=== PATIENT | female | born 1960 | race African-American/Black ===

== ENCOUNTER 2016-12-14 03:20 | Inpatient (IN) | payer OTHER ==
--- NOTE | ~2016-12-14 | CT71 ---
[facility] A Service [facility] RADIOLOGY TEXT RESULTS PATIENT: CHAVEZ GUERRERO LOCATION: [facility] : 64 UNIT #: [id number] AGE: [address]: Hazel Pham MD SEX: F ORDER DR: [id number] [place] [address] [id number] I MR#: [id number] Acc #: [id number] NAME: CHAVEZ GUERRERO : 1960 SEX: F STUDY DATE/TIME: 12/14/2016 0443 UNIT: SEDOF ROOM: [facility] [place] STUDY DESCRIPTION: CT Head Wo Contrast Attending Physician: Hazel Pham M.D. Ordering Physician: Gonzalez Lewis D.O. Primary Care Physician: Gonsalo Reyes Pa-C MEDICAL IMAGING REPORT This report is preliminary unless electronic signature is present. EXAM Head CT, 12/14 at 0443. INDICATION Dizziness and nausea that started yesterday. TECHNIQUE Axial images were obtained from the base to the vertex without contrast. This CT exam was performed with one or more of the following radiation dose reduction techniques: automatic exposure control, adjustment of mA and/or kV according to patient size, and iterative reconstruction. COMPARISON STUDIES No comparison. FINDINGS Ventricular size and configuration are normal. There is no acute infarct or hemorrhage. There are no masses. There is some calcification along the anterior falx. No skull fracture. There is some mild atherosclerotic disease in the carotid siphons. Mastoid air cells and middle ear cavities are clear. IMPRESSION Negative head CT. Dictated by... Reji Fragoso Jr., M.D. THIS IS AN ELECTRONICALLY VERIFIED REPORT [facility] A Service [facility] RADIOLOGY TEXT RESULTS PATIENT: CHAVEZ GUERRERO LOCATION: [facility] : 64 UNIT #: [id number] AGE: [address]: Hazel Pham MD SEX: F ORDER DR: Reji Fragoso Jr., M.D. at 12/14/2016 12:39 PM VIET/dorota TD: 12/14/2016 10:38 JOB #: [id number] MEDICAL IMAGING REPORT Page 1 of 1
--- NOTE | ~2016-12-14 | HP ---
Unit #: [id number] #: [id number] Patient: CHAVEZ GUERRERO [id number] [address] [place], [place] [address] [id number] I MR#: [id number] NAME: CHAVEZ GUERRERO ROOM: 471 Age: 56 Sex: F Admission Date: 12/14/2016 : 1960 Attending Physician: Hazel Pham M.D. Primary Care Physician: Gonsalo Reyes Pa-C HISTORY AND PHYSICAL CHIEF COMPLAINT Nausea, vomiting and abdominal pain. HISTORY OF PRESENT ILLNESS The patient is a 56-year-old female with multiple medical problems, who came to the hospital because of nausea, vomiting and abdominal pain. According to her, it started Friday at 9:30. When she woke up she started having dizziness and room rotating. After that she became pretty nauseous and started vomiting. Since then she was vomiting and came to the emergency room. She started having abdominal pain which was radiating to the back. It is moderate in severity. She is still having nausea and still having vomiting. Her pain has not improved according to her. The patient had the same kind of symptoms in the past in 2014 and was diagnosed with pancreatitis. She does not complain of fever, but she was having chills and sweating. The patient does not have any complaint of diarrhea. Her last bowel movement was on . She is passing gas. No complaint of syncopal episode. No complaint of chest pain, shortness of breath or palpitations. PAST MEDICAL HISTORY 1. History of sarcoidosis. 2. History of asthma. 3. cardiomyopathy. 4. Diabetes mellitus type 2. 5. Hypertension. PAST SURGICAL HISTORY 1. History of cholecystectomy. 2. Hysterectomy. 3. History of . 4. History of EGD and colonoscopy. SOCIAL HISTORY The patient lives at home with her . She has past history of smoking, but does not smoke any more. No history of alcohol abuse or drug abuse. FAMILY HISTORY The patient does have a family history of pancreatitis and gallstones and also asthma. ALLERGIES The patient is allergic to Cozaar, quinapril, clonidine and latex. Unit #: [id number] #: [id number] Patient: CHAVEZ GUERRERO HOME MEDICATIONS 1. Zyrtec 10 mg daily. 2. Cardura 4 mg daily. 3. Potassium 10 mEq daily. 4. Toprol XL 100 mg b.i.d. 5. Zofran b.i.d. p.r.n. 6. Hydralazine 50 mg b.i.d. 7. Prilosec 40 mg daily. 8. Ambien 5 mg daily. 9. Gabapentin 600 mg t.i.d. 10. Isosorbide 30 mg daily. 11. Glucophage 500 mg b.i.d. 12. Amlodipine 10 mg daily. 13. Diclofenac 75 mg b.i.d. 14. Furosemide 40 mg daily. REVIEW OF SYSTEMS As per history of present illness. PHYSICAL EXAMINATION GENERAL: The patient is lying in bed. Does not seem to be in respiratory distress, but complaining of a lot of nausea. VITALS: Blood pressure 148/49, respiratory rate 16, pulse 53, temperature 98.3. HEENT: Head is normocephalic. Eye movements are normal. Clear conjunctivae. NECK: Supple. No thyromegaly. No carotid bruit. CHEST: Fair air entry. No additional sounds. HEART: S1 and S2 positive. Regular rhythm. ABDOMEN: Distended. Tenderness is present in the epigastric area and the right upper quadrant, also in the lower abdomen but much less. EXTREMITIES: Negative edema. NEUROLOGIC: The patient is awake, alert and oriented times three. No focal neurological deficits. DIAGNOSTIC STUDIES IMAGING: CT scan of the abdomen and pelvis was done, which shows interval worsening of intra and extrahepatic biliary ductal dilatation. No obstructing lesion is seen. This could be due to an ampullary stenosis and MRCP or ERCP may be beneficial. LABORATORY: White blood cell count 6.5, hemoglobin 12.8, hematocrit 38.5, platelets 201. Sodium 138, potassium 3.1, chloride 99, BUN 10, creatinine 0.5. Digoxin less than 0.02. Urinalysis shows 1+ bacteria. This morning potassium is 2.9. ASSESSMENT The patient is being admitted to medical surgical unit with 1. Abdominal pain. 2. Intractable nausea and vomiting. 3. 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 4. Diabetes mellitus type 2. 5. Hypertension. 6. Sarcoidosis. 7. Recent colonoscopy and per the patient she has a mass in the colon, although I am not very sure. Unit #: [id number] #: [id number] Patient: CHAVEZ GUERRERO PLAN The patient is being admitted to medical/surgical unit. Dr. Solorio has been consulted. The patient is n.p.o. IV pain medication is being done, IV Zofran for nausea and vomiting. The patient's home medications have been reviewed and adjusted. Plan of care has been discussed with the patient at length. Please refer to progress note for further orders. Dictated by Katerine Vieira TD: 12/15/2016 09:38 JOB #: [id number] HISTORY AND PHYSICAL Page 1 of 1 X Hazel Pham MD X HISTORY AND PHYSICAL
--- NOTE | ~2016-12-14 | EKG ---
PATIENT: CHAVEZ GUERRERO UNIT #: [id number] Ventricular Rate: 66 BPM Atrial Rate: 66 BPM P-R Interval: 182 ms QRS Duration: 102 ms Q-T Interval: 440 ms QTC Calculation(Bezet): 461 ms P [employer]: 49 degrees Calculated R [employer]: 2 degrees Calculated T [employer]: 9 degrees Diagnosis Line: Normal sinus rhythm Diagnosis Line: Voltage criteria for left ventricular hypertrophy Diagnosis Line: Abnormal ECG Diagnosis Line: When compared with ECG of 03-JAN-2016 23:21, Diagnosis Line: No significant change was found Diagnosis Line: Confirmed by RICARDO VINES MD ([id number]) on Diagnosis Line: 12/26/2016 7:12:31 AM INTERPRETING DEVIN GARDNER
--- NOTE | ~2016-12-14 | CT2 ---
[facility] A Service of [facility] & [facility] RADIOLOGY TEXT RESULTS PATIENT: CHAVEZ GUERRERO LOCATION: SEDOF [id number] : [birth year] UNIT #: [id number] AGE: [address]: Hazel Pham MD SEX: F ORDER DR: [id number] [place] [id number] I MR#: [id number] Acc #: [id number] NAME: CHAVEZ GUERRERO : 1960 SEX: F STUDY DATE/TIME: 12/14/2016 0456 UNIT: SEDOF ROOM: [id number] STUDY DESCRIPTION: CT Abd and Pelv W Cont Attending Physician: Hazel Pham M.D. Ordering Physician: Gonzalez Lewis D.O. Primary Care Physician: Gonsalo Reyes Pa-C MEDICAL IMAGING REPORT This report is preliminary unless electronic signature is present. EXAM CT abdomen and pelvis, 12/14 at 0456, INDICATION Right upper quadrant and epigastric pain with dizziness and nausea that started yesterday. History of pancreatitis. Pain is 8/10. TECHNIQUE Axial images were obtained through the abdomen and pelvis following IV contrast administration. Multiplanar reformats were obtained. This CT exam was performed with one or more of the following radiation dose reduction techniques: automatic exposure control, adjustment of mA and/or kV according to patient size, and iterative reconstruction. COMPARISON STUDIES Comparison is made with 01/04/2016. FINDINGS ABDOMEN: Heart is enlarged. There is some mild atelectasis in the left lower lobe and there is a trace amount of left pleural fluid. Low-density lesions in the spleen are unchanged. These are presumably benign lesions such as cysts or hemangiomata. Mild hepatic steatosis is present. Small low-density lesions in the right kidney are stable and are probably cysts. The pancreas is normal. No evidence of acute pancreatitis. There has been interval worsening of intra and extrahepatic biliary ductal dilatation. The common bile duct now measures about 1.4 cm in diameter, where it previously measured about 9 mm in diameter. No obstructing lesion is identified. MRCP or ERCP may be beneficial. The unopacified GI tract is normal. No free fluid. PELVIS: Urinary bladder is distended but otherwise normal. Uterus is surgically absent. The appendix is normal. The remainder of the [facility] A Service of [facility] RADIOLOGY TEXT RESULTS PATIENT: CHAVEZ GUERRERO LOCATION: [place] [id number] : [birth year] UNIT #: [id number] AGE: [address]: Hazel Pham MD SEX: F ORDER DR: unopacified GI tract is normal as well. IMPRESSION 1. Interval worsening of intra and extrahepatic biliary ductal dilatation. No obstructing lesion is seen. This could be due to an ampullary stenosis. MRCP or ERCP may be beneficial. 2. Cholecystectomy and hysterectomy. 3. Distended but otherwise normal urinary bladder. 4. Hepatic steatosis. 5. Grossly normal unopacified GI tract, including the appendix. 6. Trace left pleural effusion with some left lower lobe atelectasis. Dictated by... Reji Fragoso Jr., M.D. THIS IS AN ELECTRONICALLY VERIFIED REPORT Reji Fragoso Jr., M.D. at 12/14/2016 12:39 PM VIET/dorota TD: 12/14/2016 10:40 JOB #: [id number] MEDICAL IMAGING REPORT Page 1 of 1
--- NOTE | ~2016-12-14 | CR84 ---
[facility] A Service of [facility] & [facility] RADIOLOGY TEXT RESULTS PATIENT: CHAVEZ GUERRERO LOCATION: [place] [address]- : [birth year] UNIT #: [id number] AGE: [address]: Hazel Pham MD SEX: F ORDER DR: [id number] [facility] [address] [place], [place] [address] [id number] I MR#: [id number] Acc #: [id number] NAME: CHAVEZ GUERRERO : 1960 SEX: F STUDY DATE/TIME: 12/16/2016 13:13 UNIT: [place] ROOM: [facility] STUDY DESCRIPTION: CR ERCP Biliary and Pancr SI Attending Physician: Hazel Pham M.D. Ordering Physician: Jimbo Solorio M.D. Primary Care Physician: Gnosalo Reyes Pa-C MEDICAL IMAGING REPORT This report is preliminary unless electronic signature is present EXAM ERCP 12/16/2016 HISTORY Right upper quadrant and epigastric abdominal pain with dizziness and nausea beginning 12/13/2016 with history of pancreatitis. Dilatation of the common bile duct noted on CT scan of the abdomen and pelvis 12/14/2016 FINDINGS ERCP was performed by Dr. Solorio. 6 spot film radiographs of the upper abdomen were obtained and 3.24 minutes of fluoroscopy time was utilized. Surgical clips are seen in the right upper quadrant from prior cholecystectomy. The pancreatic duct was not injected. Contrast injection of the biliary tree shows dilatation of the intra and extrahepatic bile ducts. No filling defects or strictures were seen. Sphincterotomy was performed by Dr. Solorio. The balloon catheter was pulled retrograde through the common duct but no stones were obtained. A stent was then placed in the common bile duct. Dictated by... Fortino López M.D. THIS IS AN ELECTRONICALLY VERIFIED REPORT Fortino López M.D. at 12/18/2016 8:17 AM Eugene TD: 12/16/2016 18:02 JOB #: [id number] MEDICAL IMAGING REPORT Page 1 of 1 COPY
--- NOTE | ~2016-12-14 | DS ---
Unit #: [id number] #: [id number] Patient: CHAVEZ COSTELLO [id number] [address] [address] [id number] I MR#: [id number] NAME: CHAVEZ COSTELLO ROOM: 47 Age: 56 Sex: F Admission Date: 12/14/2016 : 1960 Discharge Date: 12/17/2016 Attending Physician: Hazel Pham M.D. Primary Care Physician: Gonsalo Reyes Pa-C DISCHARGE SUMMARY DISCHARGE DIAGNOSES 1. Ampullary stenosis, status post ERCP, status post sphincterectomy, status post common bile duct stent placement by Dr. Solorio on 12/16/2016. 2. Intractable nausea and vomiting, improved. 3. Elevated liver enzymes, improved. 4. Hypokalemia. 5. Hypomagnesemia, replaced. 6. Diabetes mellitus. 7. History of asthma. 8. History of sarcoidosis. 9. History of cardiomyopathy. 10. Hypertension. DISCHARGE MEDICATIONS 1. Gabapentin 600 mg t.i.d. 2. Glucophage 500 mg b.i.d. 3. Ambien 5 mg at nighttime p.r.n. 4. Norvasc 10 mg daily. 5. Toprol XL 100 mg b.i.d. 6. Furosemide 40 mg daily. 7. Cardura 4 mg daily. 8. Hydralazine 50 mg b.i.d. 9. Prilosec 40 mg daily. 10. Potassium 20 mEq p.o. daily. 11. Isosorbide 30 mg p.o. daily. CONSULTANTS Dr. Solorio from gastroenterology service. PROCEDURES PERFORMED ERCP. Findings are as above. DIAGNOSTIC DATA LABORATORY: Potassium 3.6, magnesium 1.3 but 2 g of magnesium have been replaced, sodium 136, chloride 103, BUN 9, creatinine 0.6, AST 47, ALT 61, lipase 15, amylase 23. On admission the patient's AST was 66 and ALT 67. IMAGING: CT scan of the head without contrast because of dizziness, which showed normal head CT. CT scan of the abdomen and pelvis for abdominal pain, nausea and vomiting, which showed interval worsening of intra and extrahepatic biliary ductal dilatation. No obstructing lesion seen. This could be due to ampullary Unit #: [id number] #: [id number] Patient: CHAVEZ COSTELLO stenosis. Cholecystectomy and hysterectomy findings are seen. HOSPITAL COURSE Ms. Chavez Costello is a 56-year-old female who was admitted on 12/14/2016 with nausea, vomiting and abdominal pain. 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 The patient also had elevated liver enzymes secondary to the above. Dr. Solorio was consulted. The patient had ERCP done and stent placement in common bile duct. Her liver enzymes are stable. Her nausea and vomiting have resolved. She is able to tolerate a diet. The patient is being discharged home on the above medications. PHYSICAL EXAMINATION VITALS: At discharge, blood pressure 145/71, respiratory rate 16, pulse 65, temperature 98.7. CHEST: Fair air entry. No additional sounds. HEART: S1 and S2 positive. Regular rhythm. ABDOMEN: Soft. Mild tenderness. EXTREMITIES: Negative edema. DISCHARGE INSTRUCTIONS 1. The patient is being discharged home in stable condition. 2. Medication as per medication reconciliation. 3. Follow up with Dr. Solorio in three to four weeks. 4. Follow up with primary care physician in one week. 5. Potassium, magnesium and liver enzymes to be done in one week. 6. Some of the tumor markers are still pending. Need to follow up on that, although (1) was 2.0, which was in normal range. The plan of care was discussed with the patient at length and she does verbalize understanding. Dictated by... Katerine Vieira TD: 12/18/2016 09:59 JOB #: [id number] DISCHARGE SUMMARY Page 1 of 1 X Hazel Pham MD X DISCHARGE SUMMARY
--- NOTE | ~2016-12-14 | CR7 ---
[facility] A Service of [facility] RADIOLOGY TEXT RESULTS PATIENT: CHAVEZ GUERRERO LOCATION: [facility] : [birth year] UNIT #: [id number] AGE: [address]: Hazel Pham MD SEX: F ORDER DR: [id number] [place] [id number] [facility]. [place], [place] [address] [id number] I MR#: [id number] Acc #: [id number] NAME: CHAVEZ GUERRERO : 1960 SEX: F STUDY DATE/TIME: 12/17/2016 17:32 UNIT: [facility] ROOM: [facility] STUDY DESCRIPTION: CR Abdomen Single AP View Attending Physician: Hazel Pham M.D. Ordering Physician: Jimbo Solorio M.D. Primary Care Physician: Gonsalo Reyes Pa-C MEDICAL IMAGING REPORT This report is preliminary unless electronic signature is present EXAM Frontal abdomen, 12/17/2016 INDICATION 56-year-old female complaining of right upper abdominal pain, stent placement. Symptoms since Friday, ERCP done yesterday. TECHNIQUE Frontal abdomen was performed on 2 cassettes. COMPARISON None. Correlation is made with CT 12/14/2016. FINDINGS There is residual oral contrast material in the colon. There is a common bile duct stent present and the gallbladder is surgically absent. There are vascular calcifications in the pelvis. No new dilated air-filled loops of bowel are seen. Moderate stool burden in the colon. No distinct organomegaly. IMPRESSION 1. Nonspecific but nonobstructive bowel gas pattern with residual oral contrast material in the colon. 2. Interval common bile duct stent placement. 3. Probable vascular calcifications in the pelvis. Status post cholecystectomy. Dictated by... Hardik Rebollar M.D. [facility] A Service of [facility] RADIOLOGY TEXT RESULTS PATIENT: CHAVEZ GUERRERO LOCATION: [facility] : [birth year] UNIT #: [id number] AGE: [address]: Hazel Pham MD SEX: F ORDER DR: THIS IS AN ELECTRONICALLY VERIFIED REPORT Hardik Rebollar M.D. at 12/18/2016 8:38 AM Noni TD: 12/18/2016 03:31 JOB #: [id number] MEDICAL IMAGING REPORT Page 1 of 1 COPY
--- NOTE | ~2016-12-14 | OR ---
Unit #: [id number] #: [id number] Patient: CHAVEZ GUERRERO [id number] [address] [place], [place] [address] [id number] MR#: [id number] NAME: CHAVEZ GUERRERO ROOM: 471 Date of Procedure: 12/16/2016 Admission Date: 12/14/2016 Surgeon: Jimbo Solorio M.D. : 1960 Attending Physician: Hazel Pham M.D. Primary Care Physician: Gonsaol Reyes Pa-C OPERATIVE REPORT JOB NOTE: CC: PRIMARY CARE PHYSICIAN PROCEDURE PERFORMED Esophagogastroduodenoscopy to descending duodenum, endoscopic retrograde cholangiopancreatography with sphincterotomy, balloon extraction of common bile duct as well as stenting of common bile duct. INDICATIONS FOR PROCEDURE The patient with significant upper abdominal pain, nausea, and vomiting. CT scan showing progressive dilation of the common bile duct suggesting distal ampullary obstruction, was advised to have an ERCP. Risks and benefits were discussed. MEDICATIONS Monitored anesthesia. POSTOPERATIVE FINDINGS 1. EGD exam shows evidence of small hiatal hernia and mild gastritis. 2. Significant ampullary stenosis as well as dilation of the intra and extrahepatic bile ducts on cholangiogram. 3. A sphincterotomy about 6 to 7 mm was performed at 12 o'clock position. 4. Balloon extraction of the common bile duct was carried out, which was negative. 5. A 10 x 10 CBD stent was placed under endoscopic and fluoroscopic guidance. 6. PD was not injected. PLAN Continue with symptomatic treatment. Repeat ERCP after 6 to 8 weeks. DESCRIPTION OF PROCEDURE The patient was explained of the procedure, risks, and benefits along with the risks and benefits of anesthesia. Risk of pancreatitis was discussed in detail. She was brought to the endoscopy room and laid in a prone position. EGD was done first. Scope was passed down the mouth into the esophagus, stomach, duodenum, and distal duodenum. Findings as described. No biopsies taken. Gently, the scope was pulled out. At this point, we pushed the side-viewing ERCP scope down the mouth into the esophagus up to the ampulla. It had a large intraduodenal part; however, the mucosa appears to be benign. After a few attempts, I was able to cannulate the common bile duct. Findings have been described above. Sphincterotomy was made at the 12 o'clock position. I then used a 12 x 15 balloon to sweep Unit #: [id number] #: [id number] Patient: CHAVEZ GUERRERO the duct. No stones or sludge was extracted. At this point, we placed a 10 x 10 CBD stent across the bile duct to ensure drainage. The scope was then gently withdrawn. Stomach was decompressed. She tolerated the procedure very well. No major complications were seen. Dictated by... Katerine Springer/swapnil TD: 12/17/2016 22:31 JOB #: [id number] OPERATIVE REPORT Page 1 of 1 X Jimbo Solorio MD X PROCEDURE OPERATIVE NOTE
[~2016-12-14 03:20] MED LIST: ACETAMINOPHEN500 M5 PO; ALBUTEROL17 GM INH; ALBUTEROL20 ml INH; ALLEGRA ALLERGY60 MG PO; ALLEGRA PO; AMLODIPINE BESY10 MG PO; ANEXSIA 7.5/3251 TA1 PO; APRESOLINE PO; ASMANEX; ASMANEX0.24 G1 IH; ASPIRIN PO; ASPIRIN81 M1 PO; ATORVASTATIN CA10 MG PO; AVAPRO PO; BENADRYL PO; CALCIUM ANTACI500 MG PO; CARDURA PO; CARDURA4 M1 PO; CLARITIN10 M1 PO; DOXYCYCLINE PO; FIORICET W/CODE1 CAP PO; FIORINAL CAPSUL1 CAP PO; FLEXERIL10 M1 PO; FLOVENT DI50 MCG/DIS IH; GLUCOPHAGE XR500 MG PO; HYDRALAZINE HCL50 MG PO; HYDROCODON-ACE1 EAC9 PO; ISOSORBIDE DINI30 MG PO; K-DUR10 MEQ; K-DUR20 ME1 PO; K-DUR20 ME2 PO; KCL PO; LANOXIN; LASIX; LASIX PO; LEVAQUIN PO; LOMOTIL WHITE2.5 MG DOB; LOPRESSOR PO; LORTAB 5/500 TA1 TA1 PO; LYRICA; LYRICA75 MG PO; METFORMIN HCL500 M1 PO; METOPROLOL TAR100 MG PO; METOPROLOL TAR25 MG; NITROGLYCERIN0.3 MG; NITROSTAT0.4 MG SL; NORCO 5/325 TAB1 TAB PO; NORCO1 TAB 10/3 PO; NORVASC; NORVASC PO; NORVASC10 MG PO; PAIN & FEVER325 MG PO; PANTOPRAZOLE SO40 MG PO; PHENERGAN25 M1 PO; PREDNISONE PO; PRILOSEC40 MG PO; PRINIVIL40 MG PO; PROTONIX20 MG PO; PROVENTIL INH0.5 ML NEB; PROVERA PO; PULMICORT0.25 MG/2 IH; QVAR7.3 GM INH; REGLAN10 MG PO; TOPROL XL100 MG PO; VITAMIN D400 UNI1 PO; VOLTAREN50 MG PO; ZANTAC PO; ZESTRIL40 MG PO; ZOFRAN ODT4 MG PO; [UNRECOGNIZED DRUG - REMARK]
[2016-12-14 03:56] LABS: BASOPHIL% 0.4 % (0-2.5); EOSINOPHIL# 0.1 X10e3 (0-0.7); EOSINOPHIL% 1.8 % (0.0-7.0); HEMATOCRIT 38.5 % (35.0-45.0); HEMOGLOBIN 12.8 gm/dL (12.0-16.0); LYMPHOCYTE# 2.2 X10e3 (1.0-3.5); LYMPHOCYTE% 34.1 % (17.0-45.0); MEAN CELL VOLUME 86.4 FL (83-96); MEAN CORPUSCULAR HEMOGLOBIN 28.7 PG (28-34); MEAN CORPUSCULAR HGB CONC 33.3 g/dL (30-36); MEAN PLATELET VOLUME 8.8 FL (6.5-11.5); MONOCYTE# 0.6 X10e3 (0-1.0); MONOCYTE% 9.7 % (3.0-12.0); NEUTROPHIL# 3.5 X10e3 (1.5-7.1); PLATELET COUNT 201 X10e3 (140-420); RED BLOOD COUNT 4.46 X10e (3.90-5.30); RED CELL DISTRIBUTION WIDTH 14.3 % (11.0-15.5); WHITE BLOOD COUNT 6.5 X10e3 (4.0-10.5)
[2016-12-14 03:58] LABS: DIFF IND NO
[2016-12-14 04:08] LABS: POC - CKMB <1.0 ng/mL (0.0-7.9); POC - MYOGLOBIN 29.6 ng/mL (0.0-169.0)
[2016-12-14 04:09] LABS: POC - TROPONIN <0.05 ng/mL (<=0.05)
[2016-12-14 04:14] LABS: ALBUMIN SERUM 4.7 g/dL (3.5-5.0); BILIRUBIN,TOTAL 0.3 mg/dL (0.2-2.0); CALCIUM SERUM 10.1 mg/dL (8.4-10.2); CREATININE SERUM 0.5 mg/dL (0.6-1.4); GLOM FILT RATE Estimated 127.2 mL/min (>60); POTASSIUM 3.1 mmol/L (3.5-5.1); PROTEIN TOTAL SERUM 8.5 g/dL (6.0-8.3)
[2016-12-14 05:20] LABS: URINE SOURCE CLEAN CATCH
[2016-12-14 05:23] LABS: URINE APPEARANCE HAZY; URINE BILIRUBIN NEG (NEG); URINE BLOOD TRACE-INTACT (NEG); URINE COLOR YELLOW; URINE GLUCOSE NEG (NORM); URINE KETONE NEG (NEG); URINE LEUKOCYTE ESTERASE 1+ (NEG); URINE NITRATE NEG (NEG); URINE PROTEIN 1+ (NEG); URINE SPECIFIC GRAVITY 1.015 (1.003-1.035); URINE UROBILINOGEN 0.2 MG/DL (NORM)
[2016-12-14 05:29] LABS: MICRO INDICATED? YES
[2016-12-14 05:30] LABS: CULTURE INDICATED? YES; URINE BACTERIA 1+ (NEG); URINE SQUAMOUS EPITHELIAL CELL MANY /[HPF]; URINE WBC 25-50 /[HPF] (0-5)
[2016-12-14 05:31] LABS: URINE AMORPHOUS SEDIMENT AMORP PHOSPHATES; URINE MUCUS PRESENT; URINE TRANSITIONAL EPI CELLS FEW /[HPF]
[2016-12-14 09:37] LABS: BASOPHIL% 0.4 % (0-2.5); EOSINOPHIL% 0.6 % (0.0-7.0); HEMOGLOBIN 12.8 gm/dL (12.0-16.0); LYMPHOCYTE# 1.7 X10e3 (1.0-3.5); LYMPHOCYTE% 28.2 % (17.0-45.0); MEAN CELL VOLUME 86.8 FL (83-96); MEAN CORPUSCULAR HEMOGLOBIN 28.6 PG (28-34); MEAN CORPUSCULAR HGB CONC 32.9 g/dL (30-36); MEAN PLATELET VOLUME 8.6 FL (6.5-11.5); MONOCYTE# 0.5 X10e3 (0-1.0); NEUTROPHIL# 3.7 X10e3 (1.5-7.1); NEUTROPHIL% 61.8 % (40-75); PLATELET COUNT 212 X10e3 (140-420); RED BLOOD COUNT 4.49 X10e (3.90-5.30); RED CELL DISTRIBUTION WIDTH 14.4 % (11.0-15.5)
[2016-12-14 09:41] LABS: DIFF IND NO
[2016-12-14 09:50] LABS: ALBUMIN SERUM 4.7 g/dL (3.5-5.0); BILIRUBIN,TOTAL 0.5 mg/dL (0.2-2.0); BUN/CREATININE RATIO 12.85; CALCIUM SERUM 9.5 mg/dL (8.4-10.2); CREATININE SERUM 0.7 mg/dL (0.6-1.4); GLOM FILT RATE Estimated 113.8 mL/min (>60); POTASSIUM 3.2 mmol/L (3.5-5.1); PROTEIN TOTAL SERUM 8.5 g/dL (6.0-8.3)
[2016-12-14] MEDS ORDERED: GLUCOPHAGE500 MG PO (17:37)
[2016-12-14] MEDS ORDERED: ISOSORBIDE MONO30 M1 PO (17:37)
[2016-12-14] MEDS ORDERED: AMLODIPINE BESY10 MG PO (17:38)
[2016-12-14] MEDS ORDERED: FUROSEMIDE40 MG PO (17:39)
[2016-12-14] MEDS ORDERED: VOLTAREN75 MG PO (17:39)
[2016-12-14] MEDS ORDERED: PRILOSEC PO (17:40)
[2016-12-14] MEDS ORDERED: HYDRALAZINE HCL50 MG PO (17:40)
[2016-12-14] MEDS ORDERED: AMBIEN10 MG PO (17:41)
[2016-12-14] MEDS ORDERED: ZYRTEC10 M1 PO (17:43)
[2016-12-14] MEDS ORDERED: GABAPENTIN600 MG PO (17:43)
[2016-12-14] MEDS ORDERED: CARDURA4 M1 PO (17:50)
[2016-12-14] MEDS ORDERED: K-DUR10 MEQ PO (17:51)
[2016-12-14] MEDS ORDERED: TOPROL XL PO (17:54)
[2016-12-14] MEDS ORDERED: ZOFRAN ODT4 M1 PO (17:55)
[2016-12-15 03:49] LABS: BASOPHIL# 0.1 X10e3 (0-0.3); BASOPHIL% 0.8 % (0-2.5); EOSINOPHIL# 0.1 X10e3 (0-0.7); EOSINOPHIL% 0.8 % (0.0-7.0); HEMATOCRIT 35.8 % (35.0-45.0); HEMOGLOBIN 11.6 gm/dL (12.0-16.0); LYMPHOCYTE# 2.4 X10e3 (1.0-3.5); LYMPHOCYTE% 33.2 % (17.0-45.0); MEAN CELL VOLUME 86.7 FL (83-96); MEAN CORPUSCULAR HGB CONC 32.3 g/dL (30-36); MEAN PLATELET VOLUME 8.5 FL (6.5-11.5); MONOCYTE# 0.6 X10e3 (0-1.0); MONOCYTE% 7.5 % (3.0-12.0); NEUTROPHIL# 4.2 X10e3 (1.5-7.1); NEUTROPHIL% 57.7 % (40-75); PLATELET COUNT 198 X10e3 (140-420); RED BLOOD COUNT 4.13 X10e (3.90-5.30); RED CELL DISTRIBUTION WIDTH 14.4 % (11.0-15.5); WHITE BLOOD COUNT 7.3 X10e3 (4.0-10.5)
[2016-12-15 03:50] LABS: DIFF IND NO
[2016-12-15 04:31] LABS: ALBUMIN SERUM 4.3 g/dL (3.5-5.0); BILIRUBIN,TOTAL 0.8 mg/dL (0.2-2.0); BUN/CREATININE RATIO 14.28; CREATININE SERUM 0.7 mg/dL (0.6-1.4); GLOM FILT RATE Estimated 113.8 mL/min (>60); PROTEIN TOTAL SERUM 7.5 g/dL (6.0-8.3)
[2016-12-15 04:37] LABS: POTASSIUM 2.9 mmol/L (3.5-5.1)
[2016-12-16 02:33] LABS: BASOPHIL% 0.7 % (0-2.5); EOSINOPHIL# 0.1 X10e3 (0-0.7); EOSINOPHIL% 1.6 % (0.0-7.0); HEMATOCRIT 35.4 % (35.0-45.0); HEMOGLOBIN 11.5 gm/dL (12.0-16.0); LYMPHOCYTE# 2.9 X10e3 (1.0-3.5); LYMPHOCYTE% 42.9 % (17.0-45.0); MEAN CORPUSCULAR HEMOGLOBIN 28.2 PG (28-34); MEAN CORPUSCULAR HGB CONC 32.4 g/dL (30-36); MEAN PLATELET VOLUME 10.2 FL (6.5-11.5); MONOCYTE# 0.6 X10e3 (0-1.0); MONOCYTE% 8.7 % (3.0-12.0); NEUTROPHIL# 3.1 X10e3 (1.5-7.1); NEUTROPHIL% 46.1 % (40-75); PLATELET COUNT 180 X10e3 (140-420); RED BLOOD COUNT 4.07 X10e (3.90-5.30); RED CELL DISTRIBUTION WIDTH 14.6 % (11.0-15.5); WHITE BLOOD COUNT 6.8 X10e3 (4.0-10.5)
[2016-12-16 02:34] LABS: DIFF IND NO
[2016-12-16 02:43] LABS: ALBUMIN SERUM 4.1 g/dL (3.5-5.0); BILIRUBIN,TOTAL 0.8 mg/dL (0.2-2.0); BUN/CREATININE RATIO 14.28; CALCIUM SERUM 9.1 mg/dL (8.4-10.2); CREATININE SERUM 0.7 mg/dL (0.6-1.4); GLOM FILT RATE Estimated 113.8 mL/min (>60); POTASSIUM 3.7 mmol/L (3.5-5.1); PROTEIN TOTAL SERUM 7.4 g/dL (6.0-8.3)
[2016-12-17 03:01] LABS: BASOPHIL% 0.5 % (0-2.5); EOSINOPHIL# 0.2 X10e3 (0-0.7); HEMATOCRIT 34.7 % (35.0-45.0); HEMOGLOBIN 11.2 gm/dL (12.0-16.0); LYMPHOCYTE# 2.4 X10e3 (1.0-3.5); LYMPHOCYTE% 31.2 % (17.0-45.0); MEAN CELL VOLUME 87.3 FL (83-96); MEAN CORPUSCULAR HEMOGLOBIN 28.3 PG (28-34); MEAN CORPUSCULAR HGB CONC 32.4 g/dL (30-36); MONOCYTE# 0.6 X10e3 (0-1.0); MONOCYTE% 7.9 % (3.0-12.0); NEUTROPHIL# 4.5 X10e3 (1.5-7.1); NEUTROPHIL% 58.4 % (40-75); PLATELET COUNT 192 X10e3 (140-420); RED BLOOD COUNT 3.97 X10e (3.90-5.30); RED CELL DISTRIBUTION WIDTH 14.4 % (11.0-15.5); WHITE BLOOD COUNT 7.8 X10e3 (4.0-10.5)
[2016-12-17 03:06] LABS: DIFF IND NO
[2016-12-17 03:35] LABS: ALBUMIN SERUM 3.9 g/dL (3.5-5.0); BILIRUBIN,TOTAL 0.6 mg/dL (0.2-2.0); CALCIUM SERUM 8.9 mg/dL (8.4-10.2); CREATININE SERUM 0.6 mg/dL (0.6-1.4); GLOM FILT RATE Estimated 119.8 mL/min (>60); PROTEIN TOTAL SERUM 6.9 g/dL (6.0-8.3)
[2016-12-17 03:43] LABS: POTASSIUM 2.9 mmol/L (3.5-5.1)
[2016-12-18 10:01] LABS: HEMATOCRIT 36.8 % (35.0-45.0); HEMOGLOBIN 11.8 gm/dL (12.0-16.0); MEAN CELL VOLUME 86.8 FL (83-96); MEAN CORPUSCULAR HEMOGLOBIN 27.9 PG (28-34); MEAN CORPUSCULAR HGB CONC 32.2 g/dL (30-36); RED BLOOD COUNT 4.24 X10e (3.90-5.30); RED CELL DISTRIBUTION WIDTH 14.6 % (11.0-15.5); WHITE BLOOD COUNT 6.4 X10e3 (4.0-10.5)
[2016-12-18 10:35] LABS: ALBUMIN SERUM 3.9 g/dL (3.5-5.0); BILIRUBIN,TOTAL 0.7 mg/dL (0.2-2.0); BUN/CREATININE RATIO 13.33; CALCIUM SERUM 9.2 mg/dL (8.4-10.2); CREATININE SERUM 0.6 mg/dL (0.6-1.4); GLOM FILT RATE Estimated 119.8 mL/min (>60); POTASSIUM 3.5 mmol/L (3.5-5.1)
[2016-12-18] MEDS ORDERED: PERCOCET 5/321 UDTAB PO (11:55)
[2016-12-19 09:50] LABS: CA 19-9 18 U/mL (<34); CA125 5 U/mL (<35)
[2017-01-27] MEDS ORDERED: ASPIRIN EC81 M1 PO (13:39)
== END 2016-12-18 13:28 | disposition home or self-care (01) | DRG 446 ==
LOC: SED 03:20 → CEDOF 05:52 → C4C 14:52
PROVIDERS: Emergency Medicine; Internal Medicine; Physician Assistant Medical
PROC: 0F798DZ Dilation of Common Bile Duct with Intraluminal Device, Via Natural or Artificial Opening Endoscopic (ICD-10-PCS; principal; 2016-12-16 13:55)
PROC: 0DJ08ZZ Inspection of Upper Intestinal Tract, Via Natural or Artificial Opening Endoscopic (ICD-10-PCS; 2016-12-16 13:55)
DX: K83.1 Obstruction of bile duct (principal); E83.42 Hypomagnesemia; I10 Essential (primary) hypertension; E11.9 Type 2 diabetes mellitus without complications; E87.6 Hypokalemia; R42 Dizziness and giddiness; Z90.49 Acquired absence of other specified parts of digestive tract; Z83.79 Family history of other diseases of the digestive system; Z79.84 Long term (current) use of oral hypoglycemic drugs; Z79.899 Other long term (current) drug therapy; Z87.891 Personal history of nicotine dependence
CPT/HCPCS: 70450; 74000; 74177; 74330; 80053; 80162; 81003; 82150; 82378; 82553; 82947; 83690; 83735; 83874; 84132; 84484; 85025; 85027; 86301; 86304; 87086; 93005; 96365; 96367; 96375; 96376; 99285; C9113; J1170; J1200; J1610; J2250; J2270; J2405; J2543; J2550; J3475; Q9967

== ENCOUNTER → 2017-01-30 | Day surgery (SDC) | payer OTHER ==
[~2017-01-30] MED LIST changes: +AMBIEN10 MG PO; +ASPIRIN EC81 M1 PO; +FUROSEMIDE40 MG PO; +GABAPENTIN600 MG PO; +GLUCOPHAGE500 MG PO; +ISOSORBIDE MONO30 M1 PO; +K-DUR10 MEQ PO; +PERCOCET 5/321 UDTAB PO; +PRILOSEC PO; +TOPROL XL PO; +VOLTAREN75 MG PO; +ZOFRAN ODT4 M1 PO; +ZYRTEC10 M1 PO
--- NOTE | ~2017-01-30 | CR84 ---
[facility] A Service of [facility] & [facility] RADIOLOGY TEXT RESULTS PATIENT: CHAVEZ GUERRERO LOCATION: [facility] : 64 UNIT #: [id number] AGE: [address]: Jimbo Solorio MD SEX: F ORDER DR: [id number] [facility] [address] [place], [place] [address] [id number] MR#: [id number] Acc #: [id number] NAME: CHAVEZ GUERRERO : 1960 SEX: F STUDY DATE/TIME: 01/30/2017 7:50 UNIT: [facility] ROOM: STUDY DESCRIPTION: CR ERCP Biliary and Pancr SI Attending Physician: Jimbo Solorio M.D. Referring Physician: Jimbo Solorio M.D. Ordering Physician: Jimbo Solorio M.D. Primary Care Physician: Claudine Ledbetter M.D. MEDICAL IMAGING REPORT This report is preliminary unless electronic signature is present EXAM ERCP 01/30/2017 HISTORY Biliary dilatation and abdominal pain. ERCP performed for stent removal. FINDINGS ERCP was performed by Dr. Solorio. Eight spot film radiographs of the upper abdomen were obtained and 2.07 minutes of fluoroscopy time was utilized. The common bile duct stent was removed. Contrast injection of the biliary tree shows dilatation of the common bile duct. Filling defects were seen within the common duct. A balloon catheter was used remove the stones within the duct by Dr. Solorio. The pancreatic duct was not injected. Dictated by... Fortino López M.D. THIS IS AN ELECTRONICALLY VERIFIED REPORT Fortino López M.D. at 01/31/2017 8:07 AM MOO/griselda TD: 01/30/2017 13:01 JOB #: [id number] MEDICAL IMAGING REPORT Page 1 of 1 COPY
--- NOTE | ~2017-01-30 | OR ---
Unit #: [id number] #: [id number] Patient: CHAVEZ GUERRERO [id number] [address] [place], [place] [address] [id number] O MR#: [id number] NAME: CHAVEZ GUERRERO ROOM: Date of Procedure: 01/30/2017 Admission Date: 01/30/2017 Surgeon: Jimbo Solorio M.D. : 1960 Attending Physician: Jimbo Solorio M.D. Referring Physician: Jimbo Solorio M.D. Primary Care Physician: Claudine Ledbetter M.D. OPERATIVE REPORT JOB NOTE: VERIFY ADT. PROCEDURES PERFORMED 1. Endoscopic retrograde cholangiopancreatography with stent removal. 2. Endoscopic retrograde cholangiopancreatography with balloon extraction of several stones in the common bile duct. INDICATIONS FOR PROCEDURE A 56-year-old female with ampullary stenosis and history of recurrent pancreatitis, who had a recent ERCP, where she was found to have a significantly dilated duct and ampullary stenosis. Sphincterotomy and stent placement was done. She is here for removal of the stent and re-exploration of the bile duct for any retained stone. MEDICATIONS Monitored anesthesia. POSTOPERATIVE FINDINGS 1. Existing CBD stent was removed. 2. CBD dilated with a few small filling defects. Balloon extraction was carried out. Three small pigment stones were extracted. 3. A lot of air in the bile duct. 4. I could pull a 12 mm balloon through the ampulla. 5. PD, not injected. 6. Limited EGD was normal. PLAN Follow up clinically. The patient to call for any recurrent symptoms. DESCRIPTION OF PROCEDURE The patient was explained of the procedure, risks, and benefits along with risks and benefits of anesthesia. She was brought to the endoscopy room, laid in the prone position, monitored anesthesia was given. The scope was passed down the mouth and esophagus, stomach, duodenum, and distal duodenum. Ampulla was visualized. Stent was seen extending out of it. Using a snare, I pulled the stent out in one piece under fluoroscopic guidance. Bile duct was then cannulated that was significantly dilated. Few small filling defects were seen along with multiple air bubbles. Balloon extraction was then carried out; multiple x3; small stones were extracted. Occlusion cholangiogram at this time, was unremarkable. Gently, the scope was pulled out. Stomach was decompressed. The patient tolerated the procedure very well. No major complications. Unit #: [id number] #: [id number] Patient: CHAVEZ GUERRERO Dictated by... Katerine Springer/swapnil TD: 01/30/2017 12:32 JOB #: [id number] CC: Katerine Springer M.D. OPERATIVE REPORT Page 1 of 1 X Jimbo Solorio MD X PROCEDURE OPERATIVE NOTE
== END | disposition home or self-care (01) ==
LOC: COPS 06:49
DX: Z46.59 Encounter for fitting and adjustment of other gastrointestinal appliance and device (principal); K80.50 Calculus of bile duct without cholangitis or cholecystitis without obstruction; K83.8 Other specified diseases of biliary tract; I10 Essential (primary) hypertension; E11.9 Type 2 diabetes mellitus without complications; E78.5 Hyperlipidemia, unspecified; J45.909 Unspecified asthma, uncomplicated; K21.9 Gastro-esophageal reflux disease without esophagitis; Z91.040 Latex allergy status; Z88.8 Allergy status to other drugs, medicaments and biological substances; Z79.82 Long term (current) use of aspirin; Z79.899 Other long term (current) drug therapy; Z90.49 Acquired absence of other specified parts of digestive tract; Z90.710 Acquired absence of both cervix and uterus; Z98.51 Tubal ligation status
CPT/HCPCS: 74330; 82947; J1610; J2250

== ENCOUNTER → 2017-03-03 | Outpatient (CLI) | payer OTHER ==
--- NOTE | ~2017-03-03 | US85 ---
[facility] A Service of [facility] RADIOLOGY TEXT RESULTS PATIENT: CHAVEZ GUERRERO LOCATION: CNIV : [birth year] UNIT #: [id number] AGE: [address]: KELL BOSS APRN SEX: F ORDER DR: [id number] [facility] [address] [place], [place] [address] [id number] O MR#: [id number] Acc #: [id number] NAME: CHAVEZ GUERRERO : 1960 SEX: F STUDY DATE/TIME: 03/03/2017 10:22 UNIT: CNIV ROOM: STUDY DESCRIPTION: E[employer]A [employer] Stdy Attending Physician: Kell Boss Aprn Referring Physician: Kell Boss Aprn Ordering Physician: Kell Boss Aprn Primary Care Physician: Claudine Ledbetter M.D. MEDICAL IMAGING REPORT This report is preliminary unless electronic signature is present EXAM Left lower extremity venous duplex 03/03/2017 HISTORY Left leg pain for 4 weeks. Evaluate for deep vein thrombosis. TECHNIQUE Venous ultrasound examination of the left lower extremity was performed using grayscale, spectral Doppler and color flow Doppler imaging. FINDINGS The examination is negative. There is no evidence of left lower extremity deep venous thrombus from the groin to the lower calf. Visualized greater saphenous vein is also patent. IMPRESSION Negative examination. No evidence of left lower extremity deep venous thrombosis. Dictated by... Fortino López M.D. THIS IS AN ELECTRONICALLY VERIFIED REPORT Fortino López M.D. at 03/04/2017 8:04 AM MOO/carmel TD: 03/03/2017 14:49 JOB #: [id number] [facility] A Service [facility] RADIOLOGY TEXT RESULTS PATIENT: CHAVEZ GUERRERO LOCATION: CNIV : [birth year] UNIT #: [id number] AGE: [address]: KELL BOSS APRN SEX: F ORDER DR: MEDICAL IMAGING REPORT Page 1 of 1 COPY
== END | disposition home or self-care (01) ==
LOC: CNIV 09:57
DX: M79.605 Pain in left leg (principal)
CPT/HCPCS: 93971

== ENCOUNTER → 2017-03-19 | Outpatient (CLI) | payer OTHER ==
[2017-03-19 18:02] LABS: HEMATOCRIT 39.4 % (35.0-45.0); HEMOGLOBIN 12.5 gm/dL (12.0-16.0); MEAN CELL VOLUME 88.8 FL (83-96); MEAN CORPUSCULAR HEMOGLOBIN 28.1 PG (28-34); MEAN CORPUSCULAR HGB CONC 31.7 g/dL (30-36); MEAN PLATELET VOLUME 8.7 FL (6.5-11.5); RED BLOOD COUNT 4.44 X10e (3.90-5.30); RED CELL DISTRIBUTION WIDTH 14.8 % (11.0-15.5); WHITE BLOOD COUNT 7.7 X10e3 (4.0-10.5)
[2017-03-19 18:03] LABS: ALBUMIN SERUM 4.7 g/dL (3.5-5.0); BILIRUBIN,TOTAL 0.5 mg/dL (0.2-2.0); CALCIUM SERUM 10.1 mg/dL (8.4-10.2); CREATININE SERUM 0.6 mg/dL (0.6-1.4); GLOM FILT RATE Estimated 119.8 mL/min (>60); POTASSIUM 3.7 mmol/L (3.5-5.1); PROTEIN TOTAL SERUM 8.5 g/dL (6.0-8.3)
== END | disposition home or self-care (01) ==
LOC: CLAB 17:21
PROVIDERS: Internal Medicine
DX: R10.9 Unspecified abdominal pain (principal)
CPT/HCPCS: 36415; 80053; 82150; 83690; 85027